=== PATIENT | female | born 1950 | race Caucasian/White ===

== ENCOUNTER 2017-07-09 04:40 | Observation (INO) | payer MEDICARE, OTHER ==
[~2017-07-09] VITALS: Ht 154.9 cm; Wt 61.0 kg
[2017-07-09] VITALS (7 sets, daily range): BP systolic 141–174; BP diastolic 78–108; PULSE 68–77; RESP 16–20; TEMP 97.8–98.3; O2SAT 95–100
[~2017-07-09 04:40] MED LIST: BACL10TA PO; GABA300C3 PO; HYDR-3535 PO; LEVO50TA4 PO; LORTA5 PO; OXYM40TA5 PO; PHEN100 PO; PROT40TA PO; RAMI10CA35 PO; RANI150 PO; REME45TA PO; TOPI100 PO; TRAZ100T4 PO; WALKER ROLLING
--- NOTE | 2017-07-09 05:08 | PD ---
HPI Chief Complaint: Fall Time Seen by Provider: 05:03 Travel History International Travel<30 days: No Contact w/Intl Traveler<30days: No Traveled to known affect area: No History of Present Illness HPI Patient is a 67-year-old female who lives alone with her dog. She had dental work done today and was prescribed Vicodin. She took one went to sleep when she stood up to go to the bathroom she fell she does not remember what happened she denies a mechanical fall cc said she just spell patient was found to be in the common position by the paramedics and she was unable to get up off the ground for a few hours according to paramedics and the patient's report to them. She has low back pain is her main complaint and she is coming in boarded and collared no obvious injury but we transfer her up the backboard she is severe pain reaction in her lumbar spine. She is not seen another doctor for this trauma and she has not taken any medication for the pain PFSH Past Medical History Arthritis: Yes Depression: Yes Diminished Hearing: Yes Deep Vein Thrombosis: Yes GERD: Yes Genitourinary: No Hypertension: Yes Immune Disorder: No Insomnia: Yes Reproductive: Yes (hyst) Respiratory: Yes (PULMONARY EMBOLISM: 1978) Immunizations Current: No Migraines: Yes Thyroid Disease: Yes (HYPOTHYROID ) PNEUMOCCOCAL Vaccine (Year): 1 ?: Not Menopausal: Yes Past Surgical History Appendectomy: Yes Cardiac Surgery: No Section: Yes (X2) Gynecologic Surgery: Yes (C/S X 2, ABDOMINAL HYSTERECTOMY ) Hysterectomy: Yes (ABD ) Joint Replacement: Yes (BILATERAL HIPS) Pacemaker: No Tonsillectomy: Yes Other Surgery: Yes (INFERIOR VENA CAVA FILTER) Social History Alcohol Use: No Tobacco Use: No Substance Use: No Allergies-Medications (Allergen,Severity, Reaction): Coded Allergies: No Known Allergies (Verified Adverse Reaction, Unknown, 07/09/17) Reported Meds & Prescriptions Reported Meds & Active Scripts Active Reported Propranolol (Propranolol HCl) 10 Mg Tab 10 Mg PO Q12HR Trazodone (Trazodone HCl) 300 Mg Tab 300 Mg PO HS Topamax (Topiramate) 100 Mg Tab 100 Mg PO HS Ramipril 10 Mg Cap 10 Mg PO DAILY Protonix (Pantoprazole Sodium) 40 Mg Tab 40 Mg PO DAILY Mirtazapine 45 Mg Tab 45 Mg PO HS Levothyroxine (Levothyroxine Sodium) 50 Mcg Tab 50 Mcg PO DAILY Gabapentin 300 Mg Cap 300 Mg PO BID Review of Systems Except as stated in HPI: all other systems reviewed are Neg (back pain) Musculoskeletal: Positive: Other (back pain lumbral area) Physical Exam Narrative GENERAL: C-collared and boarded no obvious trauma to the head SKIN: Warm and dry. HEAD: Atraumatic. Normocephalic. EYES: Pupils equal and round. No scleral icterus. No injection or drainage. ENT: No nasal bleeding or discharge. Mucous membranes pink and moist. NECK: Trachea midline. No JVD. CARDIOVASCULAR: Regular rate and rhythm. RESPIRATORY: No accessory muscle use. Clear to auscultation. Breath sounds equal bilaterally. GASTROINTESTINAL: Abdomen soft, non-tender, nondistended. Hepatic and splenic margins not palpable. MUSCULOSKELETAL: Extremities without clubbing, cyanosis, or edema. No obvious deformities. Back very tender in the lumbar 2- 3 spinous process with palpation NEUROLOGICAL: Awake and alert. No obvious cranial nerve deficits. Motor grossly within normal limits. Five out of 5 muscle strength in the arms and legs. Normal speech. PSYCHIATRIC: Appropriate mood and affect; insight and judgment normal. Data Data Last Documented VS Orders Orders Complete Blood Count With Diff (07/09/17 05:03) Prothrombin Time / Inr (Pt) (07/09/17 05:03) Act Partial Throm Time (Ptt) (07/09/17 05:03) Type And Screen (07/09/17 05:03) Ct Brain W/O Iv Contrast(Rout) (07/09/17 05:03) Ct Cerv Spine W/O Contrast (07/09/17 05:03) Ct Abd/Pel W Iv Contrast(Rout) (07/09/17 05:03) Ct Thorax/ Chest W Iv Contrast (07/09/17 05:03) Ct Lumb Spine W Iv Contrast (07/09/17 05:03) Iv Access Insert/Monitor (07/09/17 05:03) Ecg Monitoring (07/09/17 05:03) Oximetry (07/09/17 05:03) Oxygen Administration (07/09/17 05:03) Sodium Chloride 0.9% Flush (Ns Flush) (07/09/17 05:15) Comprehensive Metabolic Panel (07/09/17 05:36) I-Stat Creatinine (07/09/17 05:15) I-Stat Profile (07/09/17 05:15) Iohexol 350 Inj (Omnipaque 350 Inj) (07/09/17 06:31) Mri L Spine W/O Contrast (07/09/17 ) Creatine Kinase (Cpk) (07/09/17 07:22) Admit Order (Ed Use Only) (07/09/17 07:29) Labs Laboratory Tests Test 07/09/17 05:15 07/09/17 05:36 White Blood Count 4.9 TH/MM3 Red Blood Count 4.06 MIL/MM3 Hemoglobin 12.6 GM/DL Bedside Hemoglobin 11.9 G/DL Hematocrit 37.6 % Bedside Hematocrit 35.0 % Mean Corpuscular Volume 92.7 FL Mean Corpuscular Hemoglobin 31.0 PG Mean Corpuscular Hemoglobin Concent 33.5 % Red Cell Distribution Width 13.7 % Platelet Count 230 TH/MM3 Mean Platelet Volume 7.9 FL Neutrophils (%) (Auto) 76.4 % Lymphocytes (%) (Auto) 12.8 % Monocytes (%) (Auto) 8.6 % Eosinophils (%) (Auto) 1.7 % Basophils (%) (Auto) 0.5 % Neutrophils # (Auto) 3.7 TH/MM3 Lymphocytes # (Auto) 0.6 TH/MM3 Monocytes # (Auto) 0.4 TH/MM3 Eosinophils # (Auto) 0.1 TH/MM3 Basophils # (Auto) 0.0 TH/MM3 CBC Comment DIFF FINAL Differential Comment Prothrombin Time 10.1 SEC Prothromb Time International Ratio 1.0 RATIO Activated Partial Thromboplast Time 21.5 SEC Bedside Sodium 145 MMOL/L Bedside Potassium 3.6 MMOL/L Bedside Chloride 108 MMOL/L Bedside Blood Urea Nitrogen 5 MG/DL Bedside Creatinine 0.7 MG/DL Bedside Glucose 93 MG/DL Blood Urea Nitrogen 7 MG/DL Creatinine 0.86 MG/DL Random Glucose 93 MG/DL Total Protein 6.5 GM/DL Albumin 3.7 GM/DL Calcium Level 10.3 MG/DL Alkaline Phosphatase 76 U/L Aspartate Amino Transf (AST/SGOT) 20 U/L Alanine Aminotransferase (ALT/SGPT) 20 U/L Total Bilirubin 0.3 MG/DL Sodium Level 146 MEQ/L Potassium Level 3.6 MEQ/L Chloride Level 110 MEQ/L Carbon Dioxide Level 28.4 MEQ/L Anion Gap 8 MEQ/L Estimat Glomerular Filtration Rate 66 ML/MIN Total Creatine Kinase 131 U/L MDM Medical Decision Making Medical Screen Exam Complete: Yes Emergency Medical Condition: Yes Differential Diagnosis * fall from narcotic from dental procedure vs mechanical fall vs syncope vs fractured spine vs contusion Narrative Course pt has Ct head neck thorax lumbral abdo and L3 has frax , radiology MD calling it old compressed end plate but her pain correlates with finding and MRI ordered and pt admitted to the floor Scripts Oxycodone (Oxycodone) 5 Mg Tab 1-2 TAB PO Q4H Y for pain, #30 TAB Prov: Neelam Burroughs PA-C 07/11/17 Rivaroxaban (Xarelto) 20 Mg Tab 20 MG PO DAILY for Blood Clot Prevention for 30 Days, #30 TAB 0 Refills Prov: Neelam Burroughs PA-C 07/11/17 Hardeep Moreno MD Jul 09, 2017 05:08
[2017-07-09] MEDS ORDERED: SODIUM CHLORIDE 0.9% FLUSH 10 ML FLUSH IVF PRN (05:15)
[2017-07-09 05:40] LABS: AUTOMATED NEUTROPHIL # 3.7 TH/MM3 (1.8-7.7); BASOPHIL % 0.5 % (0.0-2.0); EOSINOPHIL # 0.1 TH/MM3 (0-0.4); EOSINOPHIL % 1.7 % (0.0-4.0); HEMATOCRIT 37.6 % (35.0-46.0); HEMOGLOBIN 12.6 GM/DL (11.6-15.3); LYMPH % 12.8 % (9.0-44.0); LYMPHOCYTE # 0.6 TH/MM3 (1.0-4.8); MEAN CELL VOLUME 92.7 FL (80.0-100.0); MEAN CORPUSCULAR HGB CONC 33.5 % (32.0-36.0); MEAN PLATELET VOLUME 7.9 FL (7.0-11.0); MONO % 8.6 % (0.0-8.0); MONOCYTE # 0.4 TH/MM3 (0-0.9); NEUT % 76.4 % (16.0-70.0); PLATELET COUNT 230 TH/MM3 (150-450); RED BLOOD COUNT 4.06 MIL/MM3 (4.00-5.30); RED CELL DISTRIBUTION WIDTH 13.7 % (11.6-17.2); WHITE BLOOD COUNT 4.9 TH/MM3 (4.0-11.0)
[2017-07-09 05:51] LABS: PROTHROMBIN TIME - PATIENT 10.1 SEC (9.8-11.6)
[2017-07-09] MEDS ORDERED: PROT40TA PO (06:07)
[2017-07-09] MEDS ORDERED: TRAZ300T2 PO (06:07)
[2017-07-09] MEDS ORDERED: RAMI10CA PO (06:07)
[2017-07-09] MEDS ORDERED: PROP10TA6 PO (06:07)
[2017-07-09] MEDS ORDERED: MIRT45TA PO (06:07)
[2017-07-09] MEDS ORDERED: TYLETAB34 PO (06:07)
[2017-07-09] MEDS ORDERED: LEVO50TA4 PO (06:07)
[2017-07-09] MEDS ORDERED: TOPI100 PO (06:07)
[2017-07-09] MEDS ORDERED: GABA300C5 PO (06:07)
[2017-07-09 06:23] LABS: ALKALINE PHOSPHATASE 76 U/L (45-117); TOTAL BILIRUBIN ADULT 0.3 MG/DL (0.2-1.0); TOTAL PROTEIN 6.5 GM/DL (6.4-8.2)
[2017-07-09] MEDS ORDERED: IOHEXOL 350 MG/ML 10 ML VIAL (for RAD DIAG) IVCONTRAST ONE (06:31)
[2017-07-09 06:32] LABS: ALBUMIN 3.7 GM/DL (3.4-5.0); ALT (GPT) 20 U/L (10-53); AST (GOT) 20 U/L (15-37); BICARBONATE 28.4 MEQ/L (21.0-32.0); BLOOD UREA NITROGEN 7 MG/DL (7-18); CALCIUM 10.3 MG/DL (8.5-10.1); CHLORIDE 110 MEQ/L (98-107); CREATININE 0.86 MG/DL (0.50-1.00); GLOMERULAR FILTRATION RATE 66 ML/MIN (>89); GLUCOSE,RANDOM 93 MG/DL (74-106); SODIUM (NA) 146 MEQ/L (136-145)
--- NOTE | 2017-07-09 06:37 | RADRPT ---
EXAM DATE/TIME: 07/09/2017 06:13 [facility] COMPARISON: CT BRAIN W/O CONTRAST, February 24, 2016, 15:52. INDICATIONS : Trauma, fall. RADIATION DOSE: 56.35 CTDIvol (mGy) MEDICAL HISTORY : Hypertension. Deep venous thrombosis. SURGICAL HISTORY : None. ENCOUNTER: Initial ACUITY: 1 day PAIN SCALE: 5/10 LOCATION: cranial TECHNIQUE: Multiple contiguous axial images were obtained of the head. Using automated exposure control and adj ustment of the mA and/or kV according to patient size, radiation dose was kept as low as reasonably a chievable to obtain optimal diagnostic quality images. DICOM format image data is available electro nically for review and comparison. FINDINGS: CEREBRUM: The ventricles are normal for age. No evidence of midline shift, mass lesion, hemorrhage or acute in farction. No extra-axial fluid collections are seen. POSTERIOR FOSSA: The cerebellum and brainstem are intact. The 4th ventricle is midline. The cerebellopontine angle i s unremarkable. EXTRACRANIAL: The visualized portion of the orbits is intact. SKULL: The calvaria is intact. No evidence of skull fracture. CONCLUSION: Unremarkable and stable CT brain compared to the prior exam. Marcelino Graham MD on July 09, 2017 at 6:33 Board Certified Radiologist. This report was verified electronically.
--- NOTE | 2017-07-09 06:49 | RADRPT ---
EXAM DATE/TIME: 07/09/2017 06:20 [facility] COMPARISON: No previous studies available for comparison. INDICATIONS : Trauma, fall. IV CONTRAST: 100 cc Omnipaque 350 (iohexol) IV ; Cumulative dose for multiple exams. RADIATION DOSE: 5.10 CTDIvol (mGy) ; Combined studies - Thorax/Abdomen/Pelvis MEDICAL HISTORY : Hypertension. Deep venous thrombosis. Gastroesophageal reflux disease. SURGICAL HISTORY : Appendectomy. Hysterectomy. section.IVC filter. ENCOUNTER: Initial ACUITY: 1 day PAIN SCALE: 5/10 LOCATION: chest TECHNIQUE: Volumetric scanning of the chest was performed. Using automated exposure control and adjustment of t he mA and/or kV according to patient size, radiation dose was kept as low as reasonably achievable to obtain optimal diagnostic quality images. DICOM format image data is available electronically for review and comparison. Follow-up recommendations for detected pulmonary nodules are based at a minimum on nodule size and pa tient risk factors according to Fleischner Society Guidelines. FINDINGS: LUNGS: Some scattered interstitial infiltrates bilaterally. There is bibasilar atelectasis. Otherwise the chris ngs are clear. There is no evidence of pneumothorax. PLEURA: There is no pleural thickening or pleural effusion. MEDIASTINUM: The heart and great vessels demonstrate no acute abnormality. There is no mediastinal or hilar lymph adenopathy. Heart size is mildly enlarged. AXILLAE: Within normal limits. No lymphadenopathy. SKELETAL: Within normal limits for patient age. No acute bony fracture. MISCELLANEOUS: The visualized upper abdominal organs demonstrate no acute abnormality. CONCLUSION: 1. Mild scattered interstitial infiltrates and bibasilar atelectasis. 2. Compensated cardiomegaly. Marcelino Graham MD on July 09, 2017 at 6:44 Board Certified Radiologist. This report was verified electronically.
--- NOTE | 2017-07-09 06:52 | RADRPT ---
EXAM DATE/TIME: 07/09/2017 06:14 [facility] COMPARISON: CT CERVICAL SPINE W/O CONTRAST, February 24, 2016, 15:52. INDICATIONS : Trauma, fall. RADIATION DOSE: 38.64 CTDIvol (mGy) MEDICAL HISTORY : Hypertension. SURGICAL HISTORY : None. ENCOUNTER: Initial ACUITY: 1 day PAIN SCALE: 5/10 LOCATION: neck TECHNIQUE: Volumetric scanning of the cervical spine was performed. Multiplanar reconstructions in the sagittal, coronal and oblique axial planes were performed. Using automated exposure control and adjustment o f the mA and/or kV according to patient size, radiation dose was kept as low as reasonably achievable to obtain optimal diagnostic quality images. DICOM format image data is available electronically f or review and comparison. FINDINGS: VERTEBRAE: Normal vertebral body height. There are mild primary degenerative changes involving the mid to lower cervical spine. There is disc space narrowing at C4-5, C5-6 and C6-7. No acute bony fracture. There h as been no significant change compared to the prior examination. ALIGNMENT: No evidence of subluxation. C2-C3: The bony spinal canal is normal in size. No evidence of disc bulge or herniation. The neural forami na are bilaterally patent. C3-C4: The bony spinal canal is normal in size. No evidence of disc bulge or herniation. The neural forami na are bilaterally patent. C4-C5: The bony spinal canal is normal in size. No evidence of disc bulge or herniation. The neural forami na are bilaterally patent. C5-C6: The bony spinal canal is normal in size. No evidence of disc bulge or herniation. The neural forami na are bilaterally patent. C6-C7: The bony spinal canal is normal in size. No evidence of disc bulge or herniation. The neural forami na are bilaterally patent. C7-T1: The bony spinal canal is normal in size. No evidence of disc bulge or herniation. The neural forami na are bilaterally patent. CONCLUSION: 1. No acute bony fracture. 2. Primary bony degenerative changes, disc degeneration and disc space narrowing involving the mid to lower cervical spine. 3. No significant change compared to the prior study. Marcelino Graham MD on July 09, 2017 at 6:48 Board Certified Radiologist. This report was verified electronically.
--- NOTE | 2017-07-09 06:57 | RADRPT ---
EXAM DATE/TIME: 07/09/2017 06:18 [facility] COMPARISON: No previous studies available for comparison. INDICATIONS : Trauma, fall. IV CONTRAST: 100 cc Omnipaque 350 (iohexol) IV ; Cumulative dose for multiple exams. ORAL CONTRAST: No oral contrast ingested. RADIATION DOSE: 10.09 CTDIvol (mGy) ; Combined studies - Thorax/Abdomen/Pelvis MEDICAL HISTORY : Hypertension. Deep venous thrombosis. Gastroesophageal reflux disease. SURGICAL HISTORY : Appendectomy. Hysterectomy. section.IVC filter. ENCOUNTER: Initial ACUITY: 1 day PAIN SCALE: 5/10 LOCATION: abdomen TECHNIQUE: Volumetric scanning of the abdomen and pelvis was performed. Using automated exposure control and ad justment of the mA and/or kV according to patient size, radiation dose was kept as low as reasonably achievable to obtain optimal diagnostic quality images. DICOM format image data is available electro nically for review and comparison. FINDINGS: LOWER LUNGS: Bibasilar atelectasis. LIVER: Homogeneous density without lesion. There is no dilation of the biliary tree. No calcified gallston es. SPLEEN: Normal size without lesion. PANCREAS: Within normal limits. KIDNEYS: Normal in size and shape. There is no mass, stone or hydronephrosis. There is a 1 cm cyst in the mid pole the right kidney. ADRENAL GLANDS: Within normal limits. VASCULAR: There is no aortic aneurysm. BOWEL/MESENTERY: The stomach, small bowel, and colon demonstrate no acute abnormality. There is no free intraperitone al air or fluid. There are surgical clips in the midabdomen. No inflammatory changes are seen. There is some scattered diverticula in the sigmoid colon without inflammatory changes. There is stool throu ghout the colon. ABDOMINAL WALL: Within normal limits. RETROPERITONEUM: There is no lymphadenopathy. BLADDER: Nonvisualization due to metallic artifact from bilateral hip prosthetic devices. REPRODUCTIVE: Nonvisualization. INGUINAL: There is no lymphadenopathy or hernia. MUSCULOSKELETAL: There is some old compression along the superior endplate of L3. There are primary bony degenerative changes involving the lumbar spine. There is curvature lumbar spine to the left. There are bilateral hip prosthetic devices in place. No acute bony fracture is demonstrated. CONCLUSION: 1. Scattered diverticulosis of the sigmoid colon. 2. 1 cm right renal cyst. 3. Evidence of previous abdominal surgery. 4. No acute pathology. Marcelino Graham MD on July 09, 2017 at 6:50 Board Certified Radiologist. This report was verified electronically.
--- NOTE | 2017-07-09 07:03 | RADRPT ---
EXAM DATE/TIME: 07/09/2017 06:20 [facility] COMPARISON: No previous studies available for comparison. INDICATIONS : Trauma, fall. Lower back pain. IV CONTRAST: 100 cc Omnipaque 350 (iohexol) IV ; Cumulative dose for multiple exams. RADIATION DOSE: ; Reconstructed from previous dataset, no dose MEDICAL HISTORY : Hypertension. Deep venous thrombosis. SURGICAL HISTORY : Appendectomy. Hysterectomy. section.IVC filter. ENCOUNTER: Initial ACUITY: 1 day PAIN SCALE: 10/10 LOCATION: Paraspinal TECHNIQUE: Volumetric scanning of the lumbar spine was performed. Multiplanar reconstructions in the sagittal, coronal and oblique axial planes were performed. Using automated exposure control and adjustment of the mA and/or kV according to patient size, radiation dose was kept as low as reasonably achievable t o obtain optimal diagnostic quality images. DICOM format image data is available electronically for review and comparison. FINDINGS: There is an old compression fracture along the superior endplate of L3. There is good alignment of th e lumbar spine. There are primary degenerative changes the lumbar spine with disc space narrowing misael ecially at L5-S1. There is some curvature of the lumbar spine to the left. No acute bony fracture is demonstrated. PARASPINAL SOFT TISSUES: Normal. LUMBAR CORD: Normal. DURAL SAC: Normal. L1 L2 L3-L4: Mild broad-based bulging. The neural foramina are patent. Bilateral facet arthritis. CONCLUSION: 1. Old compression along the superior endplate of L3. 2. No acute bony fracture. 3. Primary bony degenerative changes throughout the lumbar spine with bilateral facet arthritis. Disc space narrowing L5-S1. Marcelino Graham MD on July 09, 2017 at 6:54 Board Certified Radiologist. This report was verified electronically.
[2017-07-09] MEDS ORDERED: SENNOSIDES 8.6 MG TAB PO PRN (08:00)
[2017-07-09] MEDS ORDERED: NALOXONE HCL 0.4 MG/ML AMP IV PUSH PRN (08:00)
[2017-07-09] MEDS ORDERED: SODIUM CHLORIDE 0.9% FLUSH 10 ML FLUSH IV FLUSH PRN (08:00)
[2017-07-09] MEDS ORDERED: LACTULOSE SYRUP 20 GM/30 ML CUP PO PRN (08:00)
[2017-07-09] MEDS ORDERED: ONDANSETRON HCL 4 MG/2 ML VIAL IVP PRN (08:00)
[2017-07-09] MEDS ORDERED: ACETAMINOPHEN 325 MG TAB PO PRN (08:00)
[2017-07-09] MEDS ORDERED: BISACODYL 10 MG SUPP RECTAL PRN (08:00)
--- NOTE | 2017-07-09 08:02 | HHI.HP ---
HPI Service [facility] Primary Care Physician Unknown Admission Diagnosis Lumbral pain post fall inability to unweightbare Diagnoses: Chief Complaint: Status post fall Travel History International Travel<30 Days: No Contact w/Intl Traveler <30 Da: No Traveled to Known Affected Are: No History of Present Illness This is a pleasant 67 y/o Female who lives alone, and after dental work received narcotic medicine, she stood up this morning to go to the bathroom she fell she does not remember what happened she denies a mechanical fall cc said she just spell patient was found to be in the common position by the paramedics and she was unable to get up off the ground for a few hours according to paramedics and the patient's report to them. She has low back pain is her main complaint and she is coming in boarded and collared no obvious injury but we transfer her up the backboard she is severe pain reaction in her lumbar spine. Seen in Emergency room continue in pain and states she is able to take morphine , also she uses Motrin 800 mg at home for pain, use Xarelto 20 mg daily due to her past medical history of DVT and Pulmonary Emboli, has an inferior vena cava filter. as discussed with ER physician will wait for result of the MRI to take further decisions. as now we have an old fracture on endplate of L3. Review of Systems Constitutional: DENIES: Fever, Chills, Change in appetite Endocrine: DENIES: Heat/cold intolerance Eyes: DENIES: Blurred vision, Eye pain Musculoskeletal: COMPLAINS OF: Back pain Except as stated in HPI: all other systems reviewed are Neg Past Family Social History Past Medical History OA Depression Hypoacusis DVT GERD Hypertension Depression Pulmonary Emboli 1977 Hypothyroidism Migraine Past Surgical History Appendectomy C Section x 2 [place] Bilateral Hip replacement Tonsillectomy Inferior vena cava filter Reported Medications Reported Meds & Active Scripts Active Reported Propranolol (Propranolol HCl) 10 Mg Tab 10 Mg PO Q12HR Trazodone (Trazodone HCl) 300 Mg Tab 300 Mg PO HS Topamax (Topiramate) 100 Mg Tab 100 Mg PO HS Ramipril 10 Mg Cap 10 Mg PO DAILY Protonix (Pantoprazole Sodium) 40 Mg Tab 40 Mg PO DAILY Mirtazapine 45 Mg Tab 45 Mg PO HS Levothyroxine (Levothyroxine Sodium) 50 Mcg Tab 50 Mcg PO DAILY Tylenol-Codeine #3 (Acetaminophen-Codeine) 300-30 mg Tab 1 Tab PO Q6HR PRN Gabapentin 300 Mg Cap 300 Mg PO BID Allergies: Coded Allergies: No Known Allergies (Verified Adverse Reaction, Unknown, 07/09/17) Active Ordered Medications Current Medications Medications (Trade) Dose Ordered Sig/Feliz Route Start Time Stop Time Status Last Admin (NS Flush) 2 ml UNSCH PRN IVF 07/09/17 05:15 (Neurontin) 300 mg BID PO 07/09/17 09:00 (Synthroid) 50 mcg DAILY@0600 PO 07/09/17 10:00 (Remeron) 45 mg HS PO 07/09/17 21:00 (Protonix) 40 mg DAILY PO 07/09/17 09:00 UNV (Inderal) 10 mg Q12HR PO 07/09/17 09:00 UNV (Topamax) 100 mg HS PO 07/09/17 21:00 UNV (Desyrel) 300 mg HS PO 07/09/17 21:00 UNV Non-Formulary Medication 10 mg DAILY PO 07/09/17 09:00 UNV Sodium Chloride 1,000 ml @ 83 mls/hr Q12H3M IV 07/09/17 07:52 UNV (NS Flush) 2 ml UNSCH PRN IV FLUSH 07/09/17 08:00 UNV (NS Flush) 2 ml BID IV FLUSH 07/09/17 09:00 UNV (Tylenol) 650 mg Q4H PRN PO 07/09/17 08:00 (Zofran Inj) 4 mg Q6H PRN IVP 07/09/17 08:00 UNV (Narcan Inj) 0.4 mg UNSCH PRN IV PUSH 07/09/17 08:00 (Senokot) 17.2 mg Q12H PRN PO 07/09/17 08:00 UNV (Dulcolax Supp) 10 mg DAILY PRN RECTAL 07/09/17 08:00 (Lactulose Liq) 30 ml DAILY PRN PO 07/09/17 08:00 Family History Asked and denied. Social History Lives with her Dog, states she has a Sister but does not get along with her also she has Daughters but they do not talk to her, Denies any toxic habits, consulted social studies department chair. Physical Exam Vital Signs Vital Signs Date Time Temp Pulse Resp B/P (MAP) Pulse Ox O2 Delivery O2 Flow Rate FiO2 07/09/17 05:15 98 Room Air 07/09/17 04:50 Room Air 07/09/17 04:40 97.8 68 20 174/108 (130) 98 Physical Exam GENERAL: Well developed female in moderate distress due to pain. SKIN: bilateral legs with some trophic changes and ecchymosis. HEAD: Atraumatic. Normocephalic. No temporal or scalp tenderness. EYES: Pupils equal round and reactive. Extraocular motions intact. No scleral icterus. No injection or drainage. ENT: Nose without bleeding, purulent drainage or septal hematoma. Throat without erythema, tonsillar hypertrophy or exudate. Uvula midline. Airway patent. NECK: Trachea midline. No JVD or lymphadenopathy. Supple, nontender, no meningeal signs. CARDIOVASCULAR: Regular rate and rhythm without murmurs, gallops, or rubs. RESPIRATORY: Clear to auscultation. Breath sounds equal bilaterally. No wheezes , rales, or rhonchi. GASTROINTESTINAL: Abdomen soft, non-tender, nondistended. No hepato-splenomegaly , or palpable masses. No guarding. MUSCULOSKELETAL: Extremities without clubbing, cyanosis, or edema. NEUROLOGICAL: Awake and alert. Cranial nerves II through XII intact. No focal deficits found. Laboratory Laboratory Tests Test 07/09/17 05:15 07/09/17 05:36 White Blood Count 4.9 Red Blood Count 4.06 Hemoglobin 12.6 Bedside Hemoglobin 11.9 Hematocrit 37.6 Bedside Hematocrit 35.0 Mean Corpuscular Volume 92.7 Mean Corpuscular Hemoglobin 31.0 Mean Corpuscular Hemoglobin Concent 33.5 Red Cell Distribution Width 13.7 Platelet Count 230 Mean Platelet Volume 7.9 Neutrophils (%) (Auto) 76.4 Lymphocytes (%) (Auto) 12.8 Monocytes (%) (Auto) 8.6 Eosinophils (%) (Auto) 1.7 Basophils (%) (Auto) 0.5 Neutrophils # (Auto) 3.7 Lymphocytes # (Auto) 0.6 Monocytes # (Auto) 0.4 Eosinophils # (Auto) 0.1 Basophils # (Auto) 0.0 CBC Comment DIFF FINAL Differential Comment Prothrombin Time 10.1 Prothromb Time International Ratio 1.0 Activated Partial Thromboplast Time 21.5 Bedside Sodium 145 Bedside Potassium 3.6 Bedside Chloride 108 Bedside Blood Urea Nitrogen 5 Bedside Creatinine 0.7 Bedside Glucose 93 Blood Urea Nitrogen 7 Creatinine 0.86 Random Glucose 93 Total Protein 6.5 Albumin 3.7 Calcium Level 10.3 Alkaline Phosphatase 76 Aspartate Amino Transf (AST/SGOT) 20 Alanine Aminotransferase (ALT/SGPT) 20 Total Bilirubin 0.3 Sodium Level 146 Potassium Level 3.6 Chloride Level 110 Carbon Dioxide Level 28.4 Anion Gap 8 Estimat Glomerular Filtration Rate 66 Result Diagram: 07/09/1715 07/09/17 0536 Imaging Last Impressions Lumbar Spine CT 07/09/17502 Signed Impressions: Service Date/Time: Sunday, July 09, 2017 06:20 - CONCLUSION: 1. Old compression along the superior endplate of L3. 2. No acute bony fracture. 3. Primary bony degenerative changes throughout the lumbar spine with bilateral facet arthritis. Disc space narrowing L5-S1. Marcelino Graham MD Head CT 07/09/17502 Signed Impressions: Service Date/Time: Sunday, July 09, 2017 06:13 - CONCLUSION: Unremarkable and stable CT brain compared to the prior exam. Marcelino Graham MD Chest CT 07/09/17502 Signed Impressions: Service Date/Time: Sunday, July 09, 2017 06:20 - CONCLUSION: 1. Mild scattered interstitial infiltrates and bibasilar atelectasis. 2. Compensated cardiomegaly. Marcelino Graham MD Cervical Spine CT 07/09/17502 Signed Impressions: Service Date/Time: Sunday, July 09, 2017 06:14 - CONCLUSION: 1. No acute bony fracture. 2. Primary bony degenerative changes, disc degeneration and disc space narrowing involving the mid to lower cervical spine. 3. No significant change compared to the prior study. Marcelino Graham MD Abdomen/Pelvis CT 07/09/17502 Signed Impressions: Service Date/Time: Sunday, July 09, 2017 06:18 - CONCLUSION: 1. Scattered diverticulosis of the sigmoid colon. 2. 1 cm right renal cyst. 3. Evidence of previous abdominal surgery. 4. No acute pathology. Marcelino Graham MD Caprinag VTE Risk Assessment Caprini VTE Risk Assessment: Mod/High Risk (score >= 2) Caprini Risk Assessment Model Point Value = 1 Point Value = 2 Point Value = 3 Point Value = 5 Age 41-60 Minor surgery BMI > 25 kg/m2 Swollen legs Varicose veins or History of unexplained or recurrent spontaneous Oral contraceptives or hormone replacement Sepsis (< 1 month) Serious lung disease, including pneumonia (< 1 month) Abnormal pulmonary function Acute myocardial infarction Congestive heart failure (< 1 month) History of inflammatory bowel disease Medical patient at bed rest Age 61-74 Arthroscopic surgery Major open surgery (> 45 min) Laparoscopic surgery (> 45 min) Malignancy Confined to bed (> 72 hours) Immobilizing plaster cast Central venous access Age >= 75 History of VTE Family history of VTE Factor V Leiden Prothrombin [id number] Lupus anticoagulant Anticardiolipin antibodies Elevated serum homocysteine Heparin-induced thrombocytopenia Other congenital or acquired thrombophilia Stroke (< 1 month) Elective arthroplasty Hip, pelvis, or leg fracture Acute spinal cord injury (< 1 month) Prophylaxis Regimen Total Risk Factor Score Risk Level Prophylaxis Regimen 0-1 Low Early ambulation 2 Moderate Order ONE of the following: *Sequential Compression Device (SCD) *Heparin 5000 units SQ BID 3-4 Higher Order ONE of the following medications: *Heparin 5000 units SQ TID *Enoxaparin/Lovenox 40 mg SQ daily (WT < 150 kg, CrCl > 30 mL/min) *Enoxaparin/Lovenox 30 mg SQ daily (WT < 150 kg, CrCl > 10-29 mL/min) *Enoxaparin/Lovenox 30 mg SQ BID (WT < 150 kg, CrCl > 30 mL/min) AND/OR *Sequential Compression Device (SCD) 5 or more Highest Order ONE of the following medications: *Heparin 5000 units SQ TID (Preferred with Epidurals) *Enoxaparin/Lovenox 40 mg SQ daily (WT < 150 kg, CrCl > 30 mL/min) *Enoxaparin/Lovenox 30 mg SQ daily (WT < 150 kg, CrCl > 10-29 mL/min) *Enoxaparin/Lovenox 30 mg SQ BID (WT < 150 kg, CrCl > 30 mL/min) AND *Sequential Compression Device (SCD) Assessment and Plan Assessment and Plan 1. Status post fall and secondary low back pain, found old fracture on end plate L3, will continue Pain medicine and follow MRI results. added Muscle relaxants. 2. OA by history she uses Motrin at home, was taking Vicodin due to dental work 3. Depression stable continue home medicines 4. 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 GERD by history continue PPIs 6. Hypertension uncontrolled on admission continue home Ramipril and Beta patricia 7. Hypothyroidism to continue Hormonal replacement 8. Migraine by history continue Home medicines 9. Seizure disorder by history to continue Home medicines awaiting for PT consult MRI of the Lumbar spine Pain medicines continue technical manager consult admitted for observation Code Status Full Code. Discussed Condition With ER physician Hardeep Moreno MD, Guillermo MD Jul 09, 2017 08:02
[2017-07-09] MEDS ORDERED: MORPHINE SULFATE 2 MG/ML INJ IM PRN (08:45)
[2017-07-09] MEDS ORDERED: PROPRANOLOL HCL 10 MG TAB PO SCH (09:00)
[2017-07-09] MEDS: PANTOPRAZOLE SOD 40 MG DELAYED RELEASE TAB PO SCH (09:04)
[2017-07-09] MEDS: GABAPENTIN 300 MG CAP PO SCH ×2 (09:04→21:39)
[2017-07-09] MEDS: SODIUM CHLOR 0.9% 1000 ML INJ 1,000 ML IV SCH ×2 (09:04→21:38)
[2017-07-09] MEDS: DIAZEPAM 5 MG TAB PO SCH ×2 (09:04→21:39)
[2017-07-09] MEDS ORDERED: PILL SPLITTER OTHER PRN (09:15)
[2017-07-09] MEDS: RIVAROXABAN 20 MG TAB PO SCH (09:28)
[2017-07-09] MEDS: SODIUM CHLORIDE 0.9% FLUSH 10 ML FLUSH IV FLUSH SCH ×2 (09:28→21:39)
[2017-07-09] MEDS: RAMIPRIL 5 MG CAP PO SCH (09:28)
[2017-07-09] MEDS: PROPRANOLOL HCL 20 MG TAB PO SCH ×2 (09:29→21:39)
[2017-07-09] MEDS: LEVOTHYROXINE SODIUM 50 MCG TAB PO SCH (10:48)
--- NOTE | 2017-07-09 10:59 | RADRPT ---
EXAM DATE/TIME: 07/09/2017 10:10 [facility] COMPARISON: CT LUMBAR SPINE W CONTRAST, July 09, 2017, 6:20. INDICATIONS : Trauma. Pt had syncopal episode and fell. C/o back pain. MEDICAL HISTORY : Hypertension. SURGICAL HISTORY : IVC Filter placement. Hysterectomy. Bilat hip replacements. ENCOUNTER: Initial ACUITY: 2 day PAIN SCORE: 5/10 LOCATION: back TECHNIQUE: Multiplanar multisequence MRI of the lumbar spine was performed without contrast. FINDINGS: The most caudal appearing lumbar vertebra is numbered as L5. VERTEBRAE: Homogeneous signal. Normal alignment. CONUS: Normal level and configuration. T12-L1: Mildridging causing flattening of the intrathecal space without spinal stenosis neural hematocrit. L1-L2: The thecal sac has a normal diameter. No evidence of disc bulge or protrusion. The neural foramina are patent bilaterally. L2-L3: Mildridging without spinal stenosis. Minimal left-sided neuroforamina encroachment. Mild facet dise ase. L3-L4: Generalized bulging present at the intrathecal space bilateral neural foramina encroachment and moder ate degenerative changes in the facets. L4-L5: There is mildridging present with generalized disc bulging. There is moderate left-sided neural fora janice encroachment. Moderate degenerative changes are present L5-S1: Mild disc bulge is present. Neural foramina are adequate. Moderate facet disease is noted. SI join ts are normal The tibia is intact. There is no adenopathy. CONCLUSION: Moderate degenerative changes otherwise negative. Gerson Pedro MD FACR on July 09, 2017 at 10:53 Board Certified Radiologist. This report was verified electronically.
[2017-07-09] MEDS ORDERED: PROPRANOLOL HCL 20 MG TAB PO SCH (21:00)
[2017-07-09] MEDS: traZODone HCL 100 MG TAB PO SCH (21:40)
[2017-07-09] MEDS: TOPIRAMATE 100 MG TAB PO SCH (21:40)
[2017-07-09] MEDS: MIRTAZAPINE 15 MG TAB PO SCH (21:40)
[2017-07-10] VITALS (8 sets, daily range): BP systolic 125–185; BP diastolic 73–102; PULSE 69–82; RESP 17–20; TEMP 98–98.5; O2SAT 94–97
[2017-07-10] MEDS: LEVOTHYROXINE SODIUM 50 MCG TAB PO SCH (08:56)
[2017-07-10] MEDS: MORPHINE SULFATE 2 MG/ML INJ IV PRN ×2 (08:56→15:56)
[2017-07-10] MEDS: SODIUM CHLORIDE 0.9% FLUSH 10 ML FLUSH IV FLUSH SCH ×2 (09:00→21:00)
[2017-07-10] MEDS: SODIUM CHLOR 0.9% 1000 ML INJ 1,000 ML IV SCH ×2 (09:28→20:01)
[2017-07-10] MEDS: PANTOPRAZOLE SOD 40 MG DELAYED RELEASE TAB PO SCH (09:29)
[2017-07-10] MEDS: GABAPENTIN 300 MG CAP PO SCH (09:29)
[2017-07-10] MEDS: DIAZEPAM 5 MG TAB PO SCH (09:29)
[2017-07-10] MEDS: RIVAROXABAN 20 MG TAB PO SCH (09:29)
[2017-07-10] MEDS: PROPRANOLOL HCL 20 MG TAB PO SCH (09:29)
[2017-07-10] MEDS: RAMIPRIL 5 MG CAP PO SCH (09:32)
--- NOTE | 2017-07-10 09:39 | HHI.PR ---
Subjective Remarks in no acute distress. complaining of low back pain. no chest pain, sob or dizziness. seen with the RN at the bedside. Objective Vitals Vital Signs Date Time Temp Pulse Resp B/P (MAP) Pulse Ox O2 Delivery O2 Flow Rate FiO2 07/10/17 08:51 98.5 78 20 185/95 (125) 97 07/10/17 03:39 98.4 79 17 125/75 (92) 95 07/10/17 00:02 98.0 82 17 137/75 (95) 94 07/09/17 21:13 98.3 75 16 141/86 (104) 95 07/09/17 16:19 73 07/09/17 16:00 98.2 73 18 167/87 (113) 95 07/09/17 13:08 77 17 147/78 (101) 100 Room Air I/O 07/09/17 07/09/17 07/09/17 07/10/17 07/10/17 07/10/17 07:00 15:00 23:00 07:00 15:00 23:00 Intake Total 1360 ml Balance 1360 ml Intake Oral 360 ml IV Total 1000 ml # Voids 4 Result Diagram: 07/09/17 0515 07/09/17 0536 Imaging Last Impressions Lumbar Spine CT 07/09/176 Signed Impressions: Service Date/Time: Sunday, July 09, 2017 06:20 - CONCLUSION: 1. Old compression along the superior endplate of L3. 2. No acute bony fracture. 3. Primary bony degenerative changes throughout the lumbar spine with bilateral facet arthritis. Disc space narrowing L5-S1. Marcelino Graham MD Head CT 07/09/17 0505 Signed Impressions: Service Date/Time: Sunday, July 09, 2017 06:13 - CONCLUSION: Unremarkable and stable CT brain compared to the prior exam. Marcelino Graham MD Chest CT 07/09/17 0508 Signed Impressions: Service Date/Time: Sunday, July 09, 2017 06:20 - CONCLUSION: 1. Mild scattered interstitial infiltrates and bibasilar atelectasis. 2. Compensated cardiomegaly. Marcelino Graham MD Cervical Spine CT 07/09/17 Signed Impressions: Service Date/Time: Sunday, July 09, 2017 06:14 - CONCLUSION: 1. No acute bony fracture. 2. Primary bony degenerative changes, disc degeneration and disc space narrowing involving the mid to lower cervical spine. 3. No significant change compared to the prior study. Marcelino Graham MD Abdomen/Pelvis CT 07/09/17 0503 Signed Impressions: Service Date/Time: Sunday, July 09, 2017 06:18 - CONCLUSION: 1. Scattered diverticulosis of the sigmoid colon. 2. 1 cm right renal cyst. 3. Evidence of previous abdominal surgery. 4. No acute pathology. Marcelino Graham MD Lumbar Spine MRI 07/09/17 0000 Signed Impressions: Service Date/Time: Sunday, July 09, 2017 10:10 - CONCLUSION: Moderate degenerative changes otherwise negative. Gerson Pedro MD FACR Objective Remarks GENERAL: This is a well-nourished, well-developed patient, in no apparent distress but uncomfortable with the back pain. CARDIOVASCULAR: Regular rate and regular rhythm without murmurs, gallops, or rubs. RESPIRATORY: Clear to auscultation. Breath sounds equal bilaterally. No wheezes , rales, or rhonchi. GASTROINTESTINAL: Abdomen soft, non-tender, nondistended. Normal, active bowel sounds MUSCULOSKELETAL: Extremities without clubbing, cyanosis, or edema. NEURO: Alert & Oriented x4 to person, place, time, situation. Moves all ext x4 Medications and IVs Inpatient Medications Acetaminophen (Tylenol) 650 mg Q4H PRN PO TEMP > 100.4; Start 07/09/17 at 08:00 Bisacodyl (Dulcolax Supp) 10 mg DAILY PRN RECTAL SEVERE CONSITIPATION; Start at 08:00 Diazepam (Valium) 5 mg Q12HR PO Last administered on 07/09/17at 21:39; Start 06/14 at 09:00 Gabapentin (Neurontin) 300 mg BID PO Last administered on 07/09/17at 21:39; Start 07/09/17 at 09:00 Lactulose (Lactulose Liq) 30 ml DAILY PRN PO SEVERE CONSITIPATION; Start at 08:00 Levothyroxine Sodium (Synthroid) 50 mcg DAILY@0600 PO Last administered on 07/10at 08:56; Start 07/09/17 at 10:00 Mirtazapine (Remeron) 45 mg HS PO Last administered on 07/09/17at 21:40; Start 07/09/17 at 21:00 Miscellaneous (Pill Splitter) 1 ea UNSCH PRN OTHER SEE LABEL COMMENTS; Start at 09:15 Morphine Sulfate (Morphine Inj) 2 mg Q3H PRN IV PAIN SCALE 6 TO 10 Last administered on 07/10/17at 08:56; Start 07/10/17 at 08:45 Naloxone HCl (Narcan Inj) 0.4 mg UNSCH PRN IV PUSH SEE LABEL COMMENTS; Start at 08:00 Ondansetron HCl (Zofran Inj) 4 mg Q6H PRN IVP NAUSEA OR VOMITING; Start at 08:00 Oxycodone HCl (Roxicodone) 5 mg Q4H PRN PO PAIN SCALE 1 TO 5 Last administered on 07/10/17at 05:37; Start 07/09/17 at 08:45 Pantoprazole Sodium (Protonix) 40 mg DAILY PO Last administered on 07/09/17at 09 :04; Start 07/09/17 at 09:00 Propranolol HCl (Inderal) 10 mg Q12HR PO Last administered on 07/09/17at 21:39; Start 07/09/17 at 09:30 Ramipril (Altace) 10 mg DAILY PO Last administered on 07/09/17at 09:28; Start at 09:30 Rivaroxaban (Xarelto) 20 mg DAILY PO Last administered on 07/09/17at 09:28; Start 07/09/17 at 09:00 Sennosides (Senokot) 17.2 mg Q12H PRN PO Moderate constipation; Start 07/09/17 at 08:00 Sodium Chloride (NS Flush) 2 ml BID IV FLUSH Last administered on 07/09/17at 21: 39; Start 07/09/17 at 09:00 Topiramate (Topamax) 100 mg HS PO Last administered on 07/09/17at 21:40; Start 07/09/17 at 21:00 Trazodone HCl (Desyrel) 300 mg HS PO Last administered on 07/09/17at 21:40; Start 1/12/18 at 21:00 A/P Assessment and Plan A/P 1. Status post fall and secondary low back pain, found old fracture on end plate L3. MRI lumbar spine with no acute abnormality. continue with pain control- PT consult appreciated and recommended C. 2. dizzy spells/falls; will check carotid doppler , EEG and orthostatic BP. 3. Depression stable continue home medicines 4. 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 GERD by history continue PPIs 6. Hypertension uncontrolled on admission continue home Ramipril and Beta patricia 7. Hypothyroidism to continue Hormonal replacement 8. Migraine by history continue Home medicines 9. Seizure disorder by history to continue home meds- EEG as noted above. Discharge Planning dc home with C tomorrow- if pain is better controlled- pending carotid doppler and EEG. Jami Domínguez MD Jul 10, 2017 09:38
--- NOTE | 2017-07-10 11:37 | RADRPT ---
EXAM DATE/TIME: 07/10/2017 10:44 [facility] COMPARISON: US CAROTID ARTERIES, February 25, 2016, 16:02. INDICATIONS : Syncope. MEDICAL HISTORY : Hypothyroidism. Deep venous thrombosis. Hypertension. Pulmonary embolism. Arthritis. SURGICAL HISTORY : Tonsillectomy. Hysterectomy. Appendectomy. section. Bilateral total hip arthroscopy. IVC jonathon ter. ENCOUNTER: Subsequent ACUITY: 1 day PAIN SCORE: 0/10 LOCATION: Bilateral neck PEAK SYSTOLIC VELOCITIES (cm/sec): ICA/CCA RATIO: Right: 1.0 Left: 1.0 ICA: Right: 75.8 Left: 82.0 CCA: Right: 77.6 Left: 78.5 ECA: Right: 41.5 Left: 38.0 VERTEBRAL: Right: 57.7 antegrade Left: 60.0 antegrade Elevated flow velocities and ICA/CCA ratios have been found to correlate with increased degrees of vessel stenosis, calculated as percentage of diameter relative to a normal segment of distal ICA/CCA FINDINGS: RIGHT CAROTID: No significant stenosis is visualized. The waveforms are within normal limits. LEFT CAROTID: No significant stenosis is visualized. The waveforms are within normal limits. VERTEBRAL ARTERIES: Antegrade flow is seen in both vertebral arteries. MISCELLANEOUS: None. CONCLUSION: No evidence of hemodynamically significant carotid stenosis. Lucio Brower MD on July 10, 2017 at 11:33 Board Certified Radiologist. This report was verified electronically.
[2017-07-10 13:15] LABS: BICARBONATE 29.9 MEQ/L (21.0-32.0); CREATININE 0.76 MG/DL (0.50-1.00)
[2017-07-10] MEDS ORDERED: POTASSIUM CHLORIDE 20 MEQ CONTROLLED RELEASE TAB PO ONE (14:45)
[2017-07-11] VITALS: BP 174/87; PULSE 75; RESP 18; TEMP 98.1; O2SAT 96
[2017-07-11] MEDS: PROPRANOLOL HCL 20 MG TAB PO SCH ×2 (01:10→09:20)
[2017-07-11] MEDS: DIAZEPAM 5 MG TAB PO SCH ×2 (01:11→09:20)
[2017-07-11] MEDS: TOPIRAMATE 100 MG TAB PO SCH (01:11)
[2017-07-11] MEDS: GABAPENTIN 300 MG CAP PO SCH ×2 (01:11→09:19)
[2017-07-11] MEDS: MIRTAZAPINE 15 MG TAB PO SCH (01:11)
[2017-07-11] MEDS: traZODone HCL 100 MG TAB PO SCH (01:11)
[2017-07-11 01:48] VITALS: BP 158/80; PULSE 74; RESP 18; TEMP 98.1; O2SAT 98
[2017-07-11] MEDS: MORPHINE SULFATE 2 MG/ML INJ IV PRN (04:37)
[2017-07-11] MEDS: LEVOTHYROXINE SODIUM 50 MCG TAB PO SCH (06:42)
--- NOTE | 2017-07-11 07:39 | MG ---
cc: YAZAN MERCHANT MD Sex: F DATE OF [address] Domínguez MEDICAL HISTORY Arthritis, depression. Diminished hearing, GERD, DVT, hypertension, insomnia, hysterectomy, PE, migraine hyperthyroidism. The patient was prescribed Vicodin, went to sleep, woke up, stood up to go to the bathroom. She fell, unable to get up for a few hours. MEDICATIONS 2 milligrams morphine, 90 minutes before the EEG was done. Remeron. Topamax. Desyrel. Altace. Synthroid. Inderal. Neurontin. Protonix. Xarelto. Valium. Oxycodone. DESCRIPTION Background activity is 8-9 hertz alpha located posteriorly superimposed by excess beta activity. During the recording there was drop out of the alpha rhythm replaced by theta rhythm with appearance of sleep spindles and slowing with K complexes. The patient transitioned to stage II sleep. Hyperventilation was omitted. Photic stimulation did not elicit a driving response. There were no electrographic seizures or epileptiform discharges noted during the recording. INTERPRETATION This is a normal awake, drowsy and asleep EEG. Beta activity is a nonspecific finding that may be related to medication adverse effect like benzos or barbiturates. There were no electrographic seizures or epileptiform discharges noted during the recording. Clinical correlation is recommended. Yazan Merchant MD [facility] /11:52 PM /7:00 AM [facility]ITALDarell
[2017-07-11 08:30] VITALS: PULSE 72
[2017-07-11 08:42] VITALS: BP 124/90; PULSE 72; RESP 16; TEMP 97.6; O2SAT 94
--- NOTE | 2017-07-11 08:59 | HHI.FF ---
Face to Face Verification Diagnosis: (1) Fall (2) Low back pain (3) Dizziness (4) Depression (5) DVT (deep venous thrombosis) (6) Presence of IVC filter (7) Anticoagulated (8) GERD (gastroesophageal reflux disease) (9) HTN (hypertension) (10) Seizure disorder (11) Hypothyroidism (12) Chronic pain syndrome Physical Therapy Order: Evaluate and Treat, Improve ambulation, Strength and gait training Home Health Nursing Order: Medical education Signs/symptoms of disease process Nursing assessment with vital signs I have seen patient Nithya Linares on 07/11/17. My clinical findings support the need for the requested home health care services because: Ltd mobility - disease progression Deconditioned w/ increased weakness Limited ability to care for self High risk of falls I certify that my clinical findings support that this patient is homebound because: Unsteady gait/balance Unsafe to leave home unassisted Unable to use public transportation Neelam Burroughs PA-C Jul 11, 2017 8:59 am
[2017-07-11] MEDS ORDERED: XARE20TA PO (09:00)
[2017-07-11] MEDS ORDERED: OXYC-392 PO (09:02)
[2017-07-11 09:03] VITALS: BP_SYST 147; BP_SYST 204; BP_DIAS 116; BP_DIAS 78; PULSE 79
[2017-07-11] MEDS: RAMIPRIL 5 MG CAP PO SCH (09:18)
[2017-07-11] MEDS: RIVAROXABAN 20 MG TAB PO SCH (09:19)
[2017-07-11] MEDS: PANTOPRAZOLE SOD 40 MG DELAYED RELEASE TAB PO SCH (09:19)
[2017-07-11] MEDS: SODIUM CHLORIDE 0.9% FLUSH 10 ML FLUSH IV FLUSH SCH (09:19)
--- NOTE | 2017-07-11 11:30 | HHI.DS ---
Discharge Summary Admission Date Jul 09, 2017 at 07:32 Discharge Date: Jul 11, 2017 Admitting Diagnosis Lumbral pain post fall inability to unweightbare (1) Presence of IVC filter ICD Code: Z95.828 - Presence of other vascular implants and grafts (2) HTN (hypertension) ICD Code: I10 - Essential (primary) hypertension (3) GERD (gastroesophageal reflux disease) ICD Code: K21.9 - Gastro-esophageal reflux disease without esophagitis (4) Chronic pain syndrome ICD Code: G89.4 - Chronic pain syndrome Status: Chronic (5) Hypothyroidism ICD Code: E03.9 - Hypothyroidism, unspecified Status: Chronic (6) Depression ICD Code: F32.9 - Major depressive disorder, single episode, unspecified (7) Dizziness ICD Code: R42 - Dizziness and giddiness (8) Fall ICD Code: W19.XXXA - Unspecified fall, initial encounter Procedures none Brief History - From Admission This is a pleasant 67 y/o Female who lives alone, and after dental work received narcotic medicine, she stood up this morning to go to the bathroom she fell she does not remember what happened she denies a mechanical fall cc said she just spell patient was found to be in the common position by the paramedics and she was unable to get up off the ground for a few hours according to paramedics and the patient's report to them. She has low back pain is her main complaint and she is coming in boarded and collared no obvious injury but we transfer her up the backboard she is severe pain reaction in her lumbar spine. Seen in Emergency room continue in pain and states she is able to take morphine , also she uses Motrin 800 mg at home for pain, use Xarelto 20 mg daily due to her past medical history of DVT and Pulmonary Emboli, has an inferior vena cava filter. as discussed with ER physician will wait for result of the MRI to take further decisions. as now we have an old fracture on endplate of L3. CBC/BMP: 07/09/17 0515 07/10/17 1210 Significant Findings Laboratory Tests Test 07/09/17 05:15 07/09/17 05:36 07/10/17 12:10 Neutrophils (%) (Auto) 76.4 % (16.0-70.0) Monocytes (%) (Auto) 8.6 % (0.0-8.0) Lymphocytes # (Auto) 0.6 TH/MM3 (1.0-4.8) Activated Partial Thromboplast Time 21.5 SEC (24.3-30.1) Bedside Sodium 145 MMOL/L (137-144) Calcium Level 10.3 MG/DL (8.5-10.1) 8.0 MG/DL (8.5-10.1) Sodium Level 146 MEQ/L (136-145) Chloride Level 110 MEQ/L (98-107) 110 MEQ/L (98-107) Estimat Glomerular Filtration Rate 66 ML/MIN (>89) 76 ML/MIN (>89) Potassium Level 3.2 MEQ/L (3.5-5.1) Imaging Last Impressions Carotid Artery Ultrasound 07/10/17 0000 Signed Impressions: Service Date/Time: Monday, July 10, 2017 10:44 - CONCLUSION: No evidence of hemodynamically significant carotid stenosis. Lucio Brower MD Lumbar Spine CT 07/09/17 0503 Signed Impressions: Service Date/Time: Sunday, July 09, 2017 06:20 - CONCLUSION: 1. Old compression along the superior endplate of L3. 2. No acute bony fracture. 3. Primary bony degenerative changes throughout the lumbar spine with bilateral facet arthritis. Disc space narrowing L5-S1. Marcelino Graham MD Head CT 07/09/17 0503 Signed Impressions: Service Date/Time: Sunday, July 09, 2017 06:13 - CONCLUSION: Unremarkable and stable CT brain compared to the prior exam. Marcelino Graham MD Chest CT 07/09/17 0503 Signed Impressions: Service Date/Time: Sunday, July 09, 2017 06:20 - CONCLUSION: 1. Mild scattered interstitial infiltrates and bibasilar atelectasis. 2. Compensated cardiomegaly. Marcelino Graham MD Cervical Spine CT 07/09/17 0503 Signed Impressions: Service Date/Time: Sunday, July 09, 2017 06:14 - CONCLUSION: 1. No acute bony fracture. 2. Primary bony degenerative changes, disc degeneration and disc space narrowing involving the mid to lower cervical spine. 3. No significant change compared to the prior study. Marcelino Graham MD Abdomen/Pelvis CT 07/09/17 0503 Signed Impressions: Service Date/Time: Sunday, July 09, 2017 06:18 - CONCLUSION: 1. Scattered diverticulosis of the sigmoid colon. 2. 1 cm right renal cyst. 3. Evidence of previous abdominal surgery. 4. No acute pathology. Marcelino Graham MD Lumbar Spine MRI 07/09/17 0000 Signed Impressions: Service Date/Time: Sunday, July 09, 2017 10:10 - CONCLUSION: Moderate degenerative changes otherwise negative. Gerson Pedro MD FACR PE at Discharge GENERAL: This is a well-nourished, well-developed patient, in no apparent distress but uncomfortable with the back pain. CARDIOVASCULAR: Regular rate and regular rhythm without murmurs, gallops, or rubs. RESPIRATORY: Clear to auscultation. Breath sounds equal bilaterally. No wheezes , rales, or rhonchi. GASTROINTESTINAL: Abdomen soft, non-tender, nondistended. Normal, active bowel sounds MUSCULOSKELETAL: Extremities without clubbing, cyanosis, or edema. NEURO: Alert & Oriented x4 to person, place, time, situation. Moves all ext x4 Pt update on day of discharge At the margin of the bed, says she doesn't feel weak anymore and feels better. Pain is controlled by meds. No n/v/d/c. No cp, sob. No events overnight. Hospital Course This is a pleasant 67 y/o Female who lives alone, and after dental work received narcotic medicine, she stood up to go to the bathroom she fell she does not remember what happened she denies a mechanical fall cc said she just spell patient was found to be in the common position by the paramedics and she was unable to get up off the ground for a few hours according to paramedics and the patient's report to them. She has low back pain is her main complaint and she is coming in boarded and collared no obvious injury but we transfer her up the backboard she is severe pain reaction in her lumbar spine. Seen in Emergency room continue in pain and states she is able to take morphine , also she uses Motrin 800 mg at home for pain, use Xarelto 20 mg daily due to her past medical history of DVT and Pulmonary Emboli, has an inferior vena cava filter. as discussed with ER physician will wait for result of the MRI to take further decisions. as now we have an old fracture on endplate of L3. Status post fall and secondary low back pain, found old fracture on end plate L3. MRI lumbar spine with no acute abnormality. continue with pain control- PT consult appreciated and recommended HHC. Dizzy spells/falls; will check carotid doppler , EEG normal carotid US is normal and orthostatic BP ok. Depression stable continue home medicines Improved, discharged home with home health in stable condition to follow up as OP with PCP and consultants Pt Condition on Discharge: Stable Discharge Disposition: Disch w/ Home Health Serv Discharge Time: > 30 minutes Discharge Instructions DIET: Follow Instructions for: Heart Healthy Diet Activities you can perform: Regular-No Restrictions Follow up Referrals: PCP Follow-up - 2-3 Days New Medications: Oxycodone (Oxycodone) 5 Mg Tab 1-2 TAB PO Q4H PRN for pain, #30 TAB Continued Medications: Gabapentin (Gabapentin) 300 Mg Cap 300 MG PO BID, #60 CAP 0 Refills Levothyroxine (Levothyroxine) 50 Mcg Tab 50 MCG PO DAILY for Thyroid, #30 TAB 0 Refills Mirtazapine (Mirtazapine) 45 Mg Tab 45 MG PO HS for Depression Control, #30 TAB 0 Refills Pantoprazole (Protonix) 40 Mg Tab 40 MG PO DAILY for Ulcer Prevention, #30 TAB 0 Refills Propranolol (Propranolol) 10 Mg Tab 10 MG PO Q12HR, #60 TAB 0 Refills Ramipril (Ramipril) 10 Mg Cap 10 MG PO DAILY, #30 CAP 0 Refills Rivaroxaban (Xarelto) 20 Mg Tab 20 MG PO DAILY for Blood Clot Prevention for 30 Days, #30 TAB 0 Refills Topiramate (Topamax) 100 Mg Tab 100 MG PO HS for Control Seizures, #60 TAB 0 Refills Trazodone (Trazodone) 300 Mg Tab 300 MG PO HS for Control Depression, #30 TAB 0 Refills Discontinued Medications: Acetaminophen-Codeine (Tylenol-Codeine #3) 300-30 mg Tab 1 TAB PO Q6HR PRN for PAIN, TAB 0 Refills Mel Brown MD Jul 11, 2017 11:30
[2017-07-11 12:46] VITALS: BP_SYST 131; BP_SYST 157; BP_DIAS 75; BP_DIAS 76; BP_DIAS 80; PULSE 71; RESP 18; TEMP 98.1; O2SAT 93
== END 2017-07-11 17:43 | disposition home or self-care (01) ==
LOC: NEPC 04:40 → NEDA 07:32 → INTOOBSV 07:32 → NEDH 12:54 → NEPGCP 14:46
PROVIDERS: ADMIT Hospitalist; ATTEND Hospitalist
DX: R55 Syncope and collapse (principal); M54.5 Low back pain; G89.4 Chronic pain syndrome; I11.9 Hypertensive heart disease without heart failure; K21.9 Gastro-esophageal reflux disease without esophagitis; E03.9 Hypothyroidism, unspecified; G40.909 Epilepsy, unspecified, not intractable, without status epilepticus; F32.9 Major depressive disorder, single episode, unspecified; J98.11 Atelectasis; H91.90 Unspecified hearing loss, unspecified ear; K57.30 Diverticulosis of large intestine without perforation or abscess without bleeding; N28.1 Cyst of kidney, acquired; Z95.828 Presence of other vascular implants and grafts; Z79.01 Long term (current) use of anticoagulants; Z86.711 Personal history of pulmonary embolism; Z86.718 Personal history of other venous thrombosis and embolism; Z90.710 Acquired absence of both cervix and uterus; Z96.643 Presence of artificial hip joint, bilateral; W19.XXXA Unspecified fall, initial encounter
CPT/HCPCS: 70450; 71260; 72125; 72132; 72148; 74177; 80048; 80053; 82435; 82550; 82565; 82947; 84132; 84295; 84520; 85025; 85610; 85730; 86850; 86900; 86901; 93880; 95819; 96360; 96361; 97110; 97116; 97162; 99285; G0378; G8987; G8988; J2270; J7030; Q9967